=== PATIENT | male | born 2005 | race Caucasian/White ===

== ENCOUNTER → 2024-07-23 | Outpatient (CLI) | payer OTHER, SELFPAY ==
[2024-07-23 09:57] LABS: Collection Type, Urine Clean Catch; Squamous Epithelial Cell,Urine 0 /hpf (0-5)
[2024-07-23 10:37] LABS: Basophils % (Auto) 1 % (0-2.5); Eosinophils # (Auto) 0.2 Thou/mm3 (0.0-0.5); Eosinophils % (Auto) 3 % (0-10); Hematocrit 43.4 % (41.0-53.0); Hemoglobin 14.5 g/dL (13.5-16.0); Immature Granulocytes % (Auto) 0 % (0-0); Immature Granulocytes Auto 0.01 Thou/mm3 (0.00-0.00); Lymphocytes # (Auto) 1.6 Thou/mm3 (1.0-4.8); Lymphocytes % (Auto) 27 % (10-50); Mean Corpuscular HGB Conc 33.4 g/dl (31.0-37.0); Mean Corpuscular Hemoglobin 28.8 pg (25.0-35.0); Mean Corpuscular Volume 86 fL (80-100); Monocytes # (Auto) 0.4 Thou/mm3 (0.0-0.8); Monocytes % (Auto) 7 % (0-12); Neutrophils # (Auto) 3.7 Thou/mm3 (1.8-7.7); Neutrophils % (Auto) 62 % (37-80); Nucleated Red Blood Cell % 0 /100 WBC (0); Platelet Count 279 Thou/mm3 (140-440); RDW Standard Deviation 38.9 fL (35.1-43.9); Red Blood Count 5.04 Miln/mm3 (4.50-5.90); White Blood Count 5.9 Thou/mm3 (4.5-11.0)
[2024-07-23 10:40] LABS: Bilirubin,Urine Negative (Negative); Blood,Urine Negative (Negative); Clarity,Urine Clear (Clear/Hazy); Color,Urine Yellow (Lt Yel-Yel); Culture Indicated,Urine Not Indicated; Glucose, Urine Negative (Negative); Ketones,Urine Negative (Negative); Leukocyte Esterase,Urine Negative (Negative); Nitrite,Urine Negative (Negative); Protein,Urine Negative (Neg - Trace); RBC,Urine 1 /hpf (0-3); Specific Gravity,Urine 1.026 (1.001-1.035); Urobilinogen,Urine Negative mg/dL (0.0-1.0); WBC,Urine 1 /hpf (0-5)
[2024-07-23 10:54] LABS: Glucose Estimated Average 100 mg/dL (80-131); Hemoglobin A1C 5.1 % Hgb (4.8-6.0); Vitamin B12 516 pg/mL (211-911)
[2024-07-23 10:58] LABS: Alanine Aminotransferase 15 U/L (10-49); Albumin, Serum 5.1 gm/dL (3.5-5.0); Albumin/Globulin Ratio 2.4 (1.2-2.2); Alkaline Phosphatase 59 U/L (46-116); Anion Gap 6 (7-16); Aspartate Amino Transferase 17 U/L (0-34); BUN/Creatinine Ratio 11 Ratio (12-20); Bilirubin,Total 0.9 mg/dL (0.3-1.2); Blood Urea Nitrogen 11 mg/dL (9-23); Carbon Dioxide 28.7 mMol/L (20.0-31.0); Cardiac Risk Estimate 2.3 RATIO (4.0-6.7); Chloride 105 mMol/L (98-107); Cholesterol 134 mg/dL (132-200); Globulin 2.1 gm/dL (2.3-3.5); Glucose 93 mg/dL (74-106); HDL Cholesterol 59 mg/dL (40-60); LDL Cholesterol,Calculated 60 mg/dL (0-130); Osmolality,Calculated 278 (275-295); Potassium 4.5 mMol/L (3.4-5.1); Sodium 140 mMol/L (136-145); Thyroid Stimulating Hormone 0.97 uIU/mL (0.55-4.78); Total Protein 7.2 gm/dL (5.7-8.2); Triglycerides 74 mg/dL (30-150); Uric Acid 6.4 mg/dL (3.7-9.2); eGFR > 60 See Note
== END | disposition home or self-care (01) ==
LOC: COPL 09:27
PROVIDERS: PCP Family Medicine; Referring Provider Physician Assistant; Visit Provider Physician Assistant
DX: R53.81 Other malaise (principal)
CPT/HCPCS: 36415; 80053; 80061; 81001; 82607; 83036; 84443; 84550; 85025

== ENCOUNTER → 2024-08-06 | Outpatient (CLI) | payer OTHER, SELFPAY ==
--- NOTE | 2024-08-06 15:00 | XR_ITS ---
Examination: Abdomen sonogram, complete Date and time of exam: August 06, 2024 1504 hours INDICATIONS: Last of appetite with abdominal pain beginning one month ago. Technique: Multiple real-time grayscale transabdominal sonographic images of the abdomen have been obtained. Findings: Normal gallbladder Normal common bile duct 0.2 cm Pancreatic head 2.2 cm Aorta not enlarged Liver 14.3 cm no focal liver lesions Normal hepatopedal portal venous flow Patent IVC Right kidney 9.1 x 5.2 x 5.6 cm cortex 1.2 cm Left kidney 9.6 x 5.8 x 4.9 cm cortex 2.5 cm Mild left renal parenchymal scar formation Spleen 9.5 cm IMPRESSION: Normal gallbladder No liver lesions Mild left renal parenchymal scar formation
== END | disposition home or self-care (01) ==
PROVIDERS: PCP Family Medicine; Referring Provider Physician Assistant; Visit Provider Physician Assistant
DX: N28.89 Other specified disorders of kidney and ureter (principal)
CPT/HCPCS: 76700

== ENCOUNTER 2025-03-04 13:27 | Emergency (ER) | payer OTHER, SELFPAY ==
[2025-03-04 13:30] VITALS: BMI 19.0
[2025-03-04 13:36] VITALS: BP 124/62; PULSE 98; RESP 17; TEMP 37.1; O2SAT 100
--- NOTE | 2025-03-04 13:41 | XR_ITS ---
Examination: Abdomen sonogram, Limited Date and time of exam: March 04, 2025 1449 hours INDICATIONS: Right upper abdominal pain beginning one year ago Technique: Real-time qiu scale transabdominal sonographic images of the upper abdomen obtained. Findings: Contracted gallbladder Normal common bile duct 0.2 cm Pancreatic head 2.0 cm Liver 14.9 cm no liver lesions Normal hepatopedal portal venous flow Patent IVC IMPRESSION: Repeat the gallbladder portion of the study with fasting
--- NOTE | 2025-03-04 13:41 | XR_ITS ---
Examination: CT abdomen and pelvis without contrast. Coronal 3-D reconstructions. Sagittal 2-D reconstructions. Date and time of exam:March 04, 2025 1356 hours INDICATIONS: Right upper abdominal pain flank pain beginning 2 days ago CTDI: vol (mGy): 5.11 DLP: (mGycm): 311 Technique: Axial images of the abdomen have been obtained, 3 mm slice thickness Intravenous contrast material has not been administered. Low dose protocols were performed. One or more of the following dose reduction techniques were used; automated exposure control, adjustment of the mA and/or KV according to patient size, use of iterative reconstruction technique. Findings: No focal liver or splenic lesions No gallstones No pancreatic or adrenal mass 2 mm mid pole left renal calculus coronal image 73 Aorta normal size No bowel obstruction Normal appendix No diverticulitis Urinary bladder intact No prostatomegaly The osseous structures are intact IMPRESSION: 2 mm midpole nonobstructing left renal calculus Normal appendix
--- NOTE | 2025-03-04 13:42 | EDRME_ITS ---
Rapid Medical Screening Exam [facility] Arrival date/time: 03/04/25 13:27 CC: Right upper quadrant abdominal pain HPI insidious onset 24 hours or progressive increase in severity last meal was 10 AM this morning no OTC medicines taken no allergies Dr Shine is his PCP. No prior history of similar events pain radiates to the back and patient has CVA tenderness on the right side. Pain is an 8-9 on a 10 scale. Denies nausea vomiting or diarrhea. Chief Complaint: Abdominal Pain Time Seen by Provider: 03/04/25 13:41 Vital signs: Vital Signs Temperature 98.8 F 03/04/25 13:36 Pulse Rate 98 03/04/25 13:36 Respiratory Rate 17 03/04/25 13:36 Blood Pressure 124/62 03/04/25 13:36 Pulse Oximetry (%) 100 03/04/25 13:36 Oxygen Delivery Method Room Air 03/04/25 13:36
[2025-03-04 14:15] LABS: Basophils # (Auto) 0.0 Thou/mm3 (0.0-0.2); Basophils % (Auto) 0 % (0-2.5); Eosinophils # (Auto) 0.1 Thou/mm3 (0.0-0.5); Eosinophils % (Auto) 1 % (0-10); Hematocrit 44.3 % (41.0-53.0); Hemoglobin 14.6 g/dL (13.5-16.0); Immature Granulocytes Auto 0.03 Thou/mm3 (0.00-0.00); Lymphocytes # (Auto) 1.5 Thou/mm3 (1.0-4.8); Lymphocytes % (Auto) 15 % (10-50); Mean Corpuscular HGB Conc 33.0 g/dl (31.0-37.0); Mean Corpuscular Hemoglobin 29.1 pg (25.0-35.0); Mean Corpuscular Volume 88 fL (80-100); Monocytes # (Auto) 0.9 Thou/mm3 (0.0-0.8); Monocytes % (Auto) 8 % (0-12); Neutrophils # (Auto) 7.5 Thou/mm3 (1.8-7.7); Neutrophils % (Auto) 75 % (37-80); Nucleated Red Blood Cell # 0.00 Thou/mm3 (0.00-0.00); Nucleated Red Blood Cell % 0 /100 WBC (0); Platelet Count 255 Thou/mm3 (140-440); RDW Standard Deviation 42.7 fL (35.1-43.9); Red Blood Count 5.01 Miln/mm3 (4.50-5.90); White Blood Count 10.1 Thou/mm3 (3.8-10.6)
[2025-03-04 14:29] LABS: INR 1.0 (0.9-1.3); Partial Thromboplastin Time 27.1 Seconds (22.0-36.0); Prothrombin Time 10.9 Seconds (9.0-12.2)
[2025-03-04 14:32] LABS: B-Type Natriuretic Peptide < 20 pg/mL (0-100)
[2025-03-04 14:39] LABS: Alanine Aminotransferase 18 U/L (10-49); Albumin, Serum 5.1 gm/dL (3.5-5.0); Albumin/Globulin Ratio 2.0 (1.2-2.2); Alkaline Phosphatase 58 U/L (46-116); Anion Gap 10 (7-16); Aspartate Amino Transferase 19 U/L (0-34); BUN/Creatinine Ratio 9 Ratio (12-20); Bilirubin,Total 1.4 mg/dL (0.3-1.2); Blood Urea Nitrogen 9 mg/dL (9-23); Calcium 9.8 mg/dL (8.3-10.6); Calcium (Corrected) 9.8 mg/dL (8.5-10.1); Carbon Dioxide 27.5 mMol/L (20.0-31.0); Chloride 104 mMol/L (98-107); Creatinine (Component) 1.0 mg/dL (0.6-1.3); Estimated Creatinine Clearance 105.0 mL/min (>60); Globulin 2.6 gm/dL (2.3-3.5); Glucose 94 mg/dL (74-106); Lipase 27 U/L (12-53); Magnesium 1.8 mg/dL (1.6-2.6); Osmolality,Calculated 279 (275-295); Potassium 4.6 mMol/L (3.4-5.1); Sodium 141 mMol/L (136-145); Total Protein 7.7 gm/dL (5.7-8.2); eGFR > 60 See Note
[2025-03-04 14:55] LABS: Collection Type, Urine Clean Catch; Squamous Epithelial Cell,Urine 0 /hpf (0-5)
[2025-03-04 15:02] LABS: Bilirubin,Urine Negative (Negative); Blood,Urine Negative (Negative); Clarity,Urine Clear (Clear/Hazy); Color,Urine Lt-Yellow (Lt Yel-Yel); Glucose, Urine Negative (Negative); Ketones,Urine Negative (Negative); Leukocyte Esterase,Urine Negative (Negative); Nitrite,Urine Negative (Negative); PH,Urine 6.5 (5.0-7.0); Protein,Urine Negative (Neg - Trace); RBC,Urine 1 /hpf (0-3); Specific Gravity,Urine 1.020 (1.001-1.035); Urobilinogen,Urine Negative mg/dL (0.0-1.0); WBC,Urine < 1 /hpf (0-5)
[2025-03-04 15:12] LABS: Amphetamine/Methamp Scrn,U Negative (Negative); Barbiturate Screen,Urine Negative (Negative); Benzodiazepines Screen,Urine Negative (Negative); Benzoylecgonine Screen, Ur Negative (Negative); Fentanyl Screen,Urine Negative (Negative); Opiate Screen,Urine Negative (Negative); THC Screen,Urine Positive (Negative)
--- NOTE | 2025-03-04 16:15 | EDNOTE_ITS ---
ED General RME/HPI General Chief complaint: Abdominal Pain Stated complaint: RUQ PAIN X2 DAYS Time Seen by Provider: 03/04/25 13:41 Arrival date/time: 03/04/25 13:27 See below RME / HPI RME / HPI narrative: 03/04/25 13:27 CC: Right upper quadrant abdominal pain HPI insidious onset 24 hours or progressive increase in severity last meal was 10 AM this morning no OTC medicines taken no allergies Dr Shine is his PCP. No prior history of similar events pain radiates to the back and patient has CVA tenderness on the right side. Pain is an 8-9 on a 10 scale. Denies nausea vomiting or diarrhea. Related Data Previous Rx's ?Medication ?Instructions ?Recorded albuterol sulfate 90 mcg/actuation 2 puff inhalation Q 6HR PRN 06/10/16 aerosol inhaler (ProAir HFA) SHORTNESS OF BREATH #1 in h famotidine 20 mg tablet 20 mg PO QDAY #30 tabs 03/04 meloxicam 7.5 mg tablet 7.5 mg PO QDAY #10 tabs 08/28 ondansetron 4 mg disintegrating 4 mg PO Q8H #10 tabs 0 03/04/25 tablet Allergies Allergy/AdvReac Type Severity Reaction Status Date / Time coconut Allergy Severe HIVES Verified 03/04/25 13:30 Bee Stings Allergy Mild Redness of Uncoded 03/04/25 13:30 Skin Review of Systems Review of Systems Narrative Review of Systems: GEN: No fever, no chills, no weight loss EYES: No discharge, no visual changes, no pain HEENT: No ear pain, no congestion, no sore throat PULM: No shortness of breath, no cough, no congestion CV: No chest pain, no dyspnea on exertion, no palpitations GI: No nausea, no vomiting, no diarrhea, + pain, no constipation : No frequency, no urgency, no dysuria MUSC/SKEL: No joint pain, no back pain SKIN: No rash PSYCH: No hallucinations, no depression HEME/LYMPH: No easy bleeding or bruising tendencies NEURO: No weakness, no headache Past Medical History Social History SMOKING STATUS: Never smoker ED Exam Narrative Physical exam: [General: In mild discomfort but not in any acute distress Head normocephalic HEENT: Within acceptable limits Neck is supple nontender Chest equal chest rise nontender to palpation Respiratory: Clear to auscultation no wheezes crackles or rubs CV: Rate flat, mild tenderness to the right upper quadrant no masses in all 4 quadrants. Back: No CVA tenderness no spinous process tenderness from cervical spine thorac ic and lumbar spine Skin: Intact no petechiae rash induration ulceration or crepitus Extremities: Moving all extremity against resistance cap refill less than 2 seconds neurosensory intact Neuro: Awake alert oriented x3 Glascow coma 15 no focal deficits] Course Quality Measures none Orders Category Date Time Status NPO NOW Care 03/04/25 13:44 Active Diet NPO (NOW) Diet 03/04/25 13:[address] abdomen pelvis wo con Stat Exams 03/04/25 13:41 Completed US gall bladder Stat Exams 03/04/25 13:41 Completed B-Type Natriuretic Peptide Stat Lab 03/04/25 14:04 Completed CBC Stat Lab 03/04/25 14:04 Completed Comprehensive Metabolic Panel Stat Lab 03/04/25 14:04 Completed Drug Screen,Urine Stat Lab 03/04/25 14:47 Completed Lipase Stat Lab 03/04/25 14:04 Completed Magnesium Stat Lab 03/04/25 14:04 Completed Partial Thromboplastin Time Stat Lab 03/04/25 14:04 Completed Prothrombin Time with INR Stat Lab 03/04/25 14:04 Completed Urinalysis Stat Lab 03/04/25 14:47 Completed Sodium Chloride 0.9% 1000 ml [Ns] 1,000 ml Med 03/04/25 13:44 Discontinued IV 999 mls/hr Vital Signs Vital signs: Vital Signs Temperature 98.8 F 03/04/25 13:36 Pulse Rate 98 03/04/25 13:36 Respiratory Rate 17 03/04/25 13:36 Blood Pressure 124/62 03/04/25 13:36 Pulse Oximetry (%) 100 03/04/25 13:36 Oxygen Delivery Method Room Air 03/04/25 13:36 Discharge Plan Plan Patient Disposition: HOME (Self Care) Patient condition on transfer: Stable Prescriptions/Referrals Prescriptions/Med Rec: New ondansetron 4 mg tablet,disintegrating 4 mg PO Q8H Qty: 10 0RF famotidine 20 mg tablet 20 mg PO QDAY Qty: 30 0RF meloxicam 7.5 mg tablet 7.5 mg PO QDAY Qty: 10 0RF No Action albuterol sulfate [ProAir HFA] 8.5 GM HFA aerosol inhaler 2 puff Inhalation Q6HR PRN (Reason: SHORTNESS OF BREATH) Qty: 1 0RF Referrals: Bette Shine MD [Primary Care Provider] - In 1 week Problem List Clinical Impression: Abdominal pain Patient/Caregiver Discharge Instructions Other Activity Instructions:: As discussed you may have a small kidney stone in kidney pelvis I do not feel that is impacting this however be aware that you may have a kidney stone that will drop down causing pain. Take all the medications as prescribed, stick to a bland diet avoid alcohol if there is worsening of symptoms next 2 to 3 days return the emergency room for reevaluation. Education Materials: Abdominal Pain, ED Diet, [place]inkler (Adult), ED Flank Pain, Uncertain Cause Print Language: Swedish Stand Alone Forms: [facility] Award Info., Patient Portal Info Letter, Work/School Release PA/VIDEO AND SOUND [employer]ORDER Supervising Physician PA/VIDEO AND SOUND [employer]ORDER Supervising Physician: Wilfred díaz ENP [facility] Clinical Information Provided by patient Medical Records Reviewed None Meds/Rx Considered, not Ordered None Chronic Illness/Social Conditions which may negatively complicate care or outcome(s)-explain: None or not applicable EKG EKG not done Lab Interpretation Lab(s) interpretation(s): CBC shows no leukocytosis anemia thrombocytopenia CMP shows no electrolyte imbalances renal impairment transaminitis or T. bili elevation however there is a T. bili elevated at 1.4. Coags within acceptable limits Imaging Imaging interpretation: interpreted by hi Provider imaging interpretation(s): Ultrasound shows a contracted gallbladder but no wall thickening or CBD dilatation CT of the abdomen pelvis shows a nonobstructive stone in the pole of the right kidney. Medication Administration(s) Medication Administration History Discontinued Medications Sodium Chloride (Ns) 1,000 mls @ 999 mls/hr IV .Q1H1M ONE Stop: 03/04/25 14:44 Patient's pain after a 3-hour weight has been diminished without any significant intervention at this time of low index of suspicion for any acute finding that requires emergent intervention. Patient to be discharged home on famotidine Zofran and told to stick to a bland diet follow-up with a primary care provider.
== END 2025-03-04 16:25 | disposition home or self-care (01) ==
PROVIDERS: Emergency Provider Registered Nurse General Practice; PCP Family Medicine
DX: R10.11 Right upper quadrant pain (principal)
CPT/HCPCS: 36415; 74176; 76705; 80053; 80307; 81001; 83690; 83735; 83880; 85025; 85610; 85730; 99283

== ENCOUNTER → 2025-03-15 | Outpatient (CLI) | payer OTHER, SELFPAY ==
--- NOTE | 2025-03-15 | XR_ITS ---
Examination: Abdomen sonogram, complete Date and time of exam: March 15, 2025 0741 hours INDICATIONS: Right upper abdominal pain beginning 11 days ago. Technique: Multiple real-time grayscale transabdominal sonographic images of the abdomen have been obtained. Findings: Normal gallbladder Normal common bile duct 0.2 cm Pancreatic head 2.1 cm Aorta not enlarged. Liver 14.1 cm no liver lesions Normal hepatopedal portal venous flow Patent IVC Right kidney 10.2 cm renal cortex 1.6 cm Left kidney 10.0 cm cortex 2.0 cm Spleen 11.6 cm IMPRESSION: Normal gallbladder Liver normal size no focal liver lesions
[2025-03-15 09:01] LABS: Basophils # (Auto) 0.0 Thou/mm3 (0.0-0.2); Basophils % (Auto) 0 % (0-2.5); Eosinophils # (Auto) 0.2 Thou/mm3 (0.0-0.5); Eosinophils % (Auto) 3 % (0-10); Hematocrit 44.2 % (41.0-53.0); Hemoglobin 14.6 g/dL (13.5-16.0); Immature Granulocytes Auto 0.06 Thou/mm3 (0.00-0.00); Lymphocytes # (Auto) 1.1 Thou/mm3 (1.0-4.8); Lymphocytes % (Auto) 16 % (10-50); Mean Corpuscular HGB Conc 33.0 g/dl (31.0-37.0); Mean Corpuscular Hemoglobin 29.0 pg (25.0-35.0); Mean Corpuscular Volume 88 fL (80-100); Monocytes # (Auto) 0.9 Thou/mm3 (0.0-0.8); Monocytes % (Auto) 12 % (0-12); Neutrophils # (Auto) 4.9 Thou/mm3 (1.8-7.7); Neutrophils % (Auto) 68 % (37-80); Nucleated Red Blood Cell # 0.00 Thou/mm3 (0.00-0.00); Nucleated Red Blood Cell % 0 /100 WBC (0); Platelet Count 317 Thou/mm3 (140-440); RDW Standard Deviation 39.9 fL (35.1-43.9); Red Blood Count 5.03 Miln/mm3 (4.50-5.90); White Blood Count 7.2 Thou/mm3 (3.8-10.6)
[2025-03-15 09:05] LABS: Alanine Aminotransferase 14 U/L (10-49); Albumin, Serum 4.7 gm/dL (3.5-5.0); Albumin/Globulin Ratio 2.0 (1.2-2.2); Alkaline Phosphatase 56 U/L (46-116); Anion Gap 12 (7-16); Aspartate Amino Transferase 15 U/L (0-34); BUN/Creatinine Ratio 10 Ratio (12-20); Bilirubin,Total 0.5 mg/dL (0.3-1.2); Blood Urea Nitrogen 9 mg/dL (9-23); Calcium 9.6 mg/dL (8.3-10.6); Calcium (Corrected) 9.6 mg/dL (8.5-10.1); Carbon Dioxide 28.1 mMol/L (20.0-31.0); Chloride 103 mMol/L (98-107); Creatinine (Component) 0.9 mg/dL (0.6-1.3); Globulin 2.3 gm/dL (2.3-3.5); Glucose 94 mg/dL (74-106); Osmolality,Calculated 283 (275-295); Potassium 5.0 mMol/L (3.4-5.1); Sodium 143 mMol/L (136-145); Total Protein 7.0 gm/dL (5.7-8.2); eGFR > 60 See Note
[2025-03-21 06:51] LABS: Gamma Glutamyl Transpeptidase* 15 U/L (3-70)
== END | disposition home or self-care (01) ==
LOC: CDIM 07:24
PROVIDERS: PCP Family Medicine; Referring Provider Student in an Organized Health Care Education/Training Program; Visit Provider Student in an Organized Health Care Education/Training Program
DX: R10.11 Right upper quadrant pain (principal)
CPT/HCPCS: 36415; 76700; 80053; 82977; 85025